=== PATIENT | male | born 2000 | race Caucasian/White ===

== ENCOUNTER 2021-04-27 17:12 | Emergency (ER) | payer OTHER ==
[~2021-04-27] VITALS: Ht 175.3 cm; Wt 90.9 kg
[2021-04-27 17:13] VITALS: TEMP 98.6
[2021-04-27 17:34] LABS: HEMOGLOBIN 16.4 g/dl (13.5-18.0); MEAN CELL VOLUME 87 fl (80.0-100.0); MEAN CORPUSCULAR HEMOGLOBIN 29 pg (27.0-31.0); MEAN CORPUSCULAR HGB CONC 34 g/dl (33.0-37.0); MEAN PLATELET VOLUME 9.3 fl (7.4-10.4); PLATELET COUNT 391 K/mm3 (130-400); RED BLOOD COUNT 5.62 M/mm3 (4.20-5.60); REDCELL DISTRIBUTION WIDTH-CV 13.2 % (11.5-14.5)
[2021-04-27 17:50] LABS: ALBUMIN 4.9 gm/dL (3.5-5.0); BILIRUBIN,TOTAL 0.7 mg/dL (0.0-1.0); CALCIUM 9.5 mg/dL (8.4-10.2); CREATININE, serum 1.09 (0.66-1.25); POTASSIUM 4.5 mmol/L (3.4-5.0); TOTAL PROTEIN 7.8 gm/dL (6.4-8.2)
[2021-04-27 17:52] LABS: BASOPHIL 1 % (0-2); EOSINOPHIL 4 % (0-4); LYMPHOCYTE 52 % (20.0-51.0); NEUTROPHILS 38 % (42.0-75.2); PLATELET ESTIMATE NORMAL (NORMAL)
[2021-04-27 20:48] VITALS: BP 137/71; PULSE 71
== END 2021-04-27 20:45 | disposition short-term general hospital (02) ==
LOC: COL.ER 17:12
PROVIDERS: Nurse Practitioner Primary Care
DX: R56.9 Unspecified convulsions (principal); M89.9 Disorder of bone, unspecified; Z87.891 Personal history of nicotine dependence
CPT/HCPCS: J1953; J2060

== ENCOUNTER 2023-11-20 08:39 | Emergency (ER) | payer OTHER ==
[~2023-11-20] VITALS: Ht 177.8 cm; Wt 104.5 kg
[2023-11-20] MEDS ORDERED: LEXAPRO20 MG (08:55)
[2023-11-20 09:21] VITALS: BP 130/80; PULSE 83; TEMP 98.3
== END 2023-11-20 09:30 | disposition home or self-care (01) ==
LOC: COL.ER 08:39
DX: R03.0 Elevated blood-pressure reading, without diagnosis of hypertension (principal)